=== PATIENT | female | born 1990 | race Caucasian/White ===

== ENCOUNTER 2018-01-22 00:12 | Emergency (ER) | payer OTHER ==
--- NOTE | 2018-01-22 00:14 | PDOC ---
History of Present Illness - General Chief Complaint: Palpitations Stated Complaint: PALPITATIONS Time Seen by Provider: 01/22/18 00:14 - History of Present Illness Initial Comments: This 27-year-old woman without significant past medical history presents with episode of palpitations and she was lying in bed, just prior to going to sleep. Patient states that she had just returned home from work; she states that it was quite cold outside and she exerted herself walking through the cold wind. After returning home, she ate constituted processed dried soup. After she laid down, she had sensation of extra beats. No sensation of rapid heartbeat. No shortness of breath. She also states that she drank more coffee during the day than she normally does (at least 2 cups of coffee) No history of smoking/HTN/DM/HLD. No significant early cardiac history in her family. Past History - Past Medical History Allergies/Adverse Reactions: Allergies Allergy/AdvReac Type Severity Reaction Status Date / Time No Known Allergies Allergy Verified 01/22/18 00:13 Home Medications: Ambulatory Orders NK [No Known Home Medication] 01/22/18 Review of Systems - Review of Systems Able to Perform ROS?: Yes Comments:: 12 point review of systems is negative except for what is noted in the history of present illness *Physical Exam - Vital Signs Last Vital Signs Temp Pulse Resp BP Pulse Ox 97.4 F L 62 16 149/102 H 100 01/22/18 00:15 01/22/18 00:15 01/22/18 00:15 01/22/18 00:45 01/22/18 00:15 - Physical Exam Comments: GENERAL: Adult female, alert and oriented 3, in no acute distress HEAD: Normal with no signs of trauma. EYES: PERRLA, EOMI, sclera anicteric, conjunctiva clear. ENT: Ears normal, nares patent, oropharynx clear without exudates. Moist mucous membranes. NECK: Normal range of motion, supple without lymphadenopathy, JVD, or masses. LUNGS: Breath sounds equal, clear to auscultation bilaterally. No wheezes, and no crackles. HEART:Regular rate and rhythm, normal S1 and S2 without murmur, rub or gallop. ABDOMEN:.normal bowel sounds No guarding,tenderness or rebound.No masses No distention. EXTREMITIES: Normal range of motion, no edema. No clubbing or cyanosis. No erythema, or tenderness. NEUROLOGICAL: Cranial nerves II through XII grossly intact. Normal speech. No focal neurological deficits. MUSCULOSKELETAL: Back non-tender to palpation, no CVA tenderness SKIN: Warm, Dry, normal turgor, no rashes or lesions noted. 12-lead electrocardiogram is performed and interpreted by me: Normal sinus rhythm at 80 beats per minute; there is right sided axis deviation. No interval or wave form abnormalities seen. No evidence of acute cardiac ischemia ; no cardiac arrhythmia seen Moderate Sedation - Procedure Monitoring Vital Signs: Procedure Monitoring Vital Signs Temperature 97.4 F L 01/22/18 00:15 Pulse Rate 62 01/22/18 00:15 Respiratory Rate 16 01/22/18 00:15 Blood Pressure 149/102 H 01/22/18 00:45 O2 Sat by Pulse Oximetry (%) 100 01/22/18 00:15 Medical Decision Making - Medical Decision Making This 27-year-old woman presents with history of palpitations episode prior to presentation. Prior to arriving in the emergency room, sensation of extra beats is fully resolved. She has no other new symptoms. Of note, the patient had significant hypertension on presentation with diastolic 110 mmHg. Patient rested for a while and blood pressure was repeated. BP now 149/102. Patient has been strongly urged to follow-up with her PMD within the next 48 hours. Meanwhile, she should avoid excessive salt and caffeine intake. *DC/Admit/Observation/Transfer Diagnosis at time of Disposition: History of palpitations - Discharge Dispostion Disposition: HOME Condition at time of disposition: Stable - Referrals - Patient Instructions Printed Discharge Instructions: Low-Sodium Diet, DI for Palpitations Additional Instructions: Limit caffeine and salt intake Follow up with your doctor within the next 2-3 days Return to ER if you have persistent palpitations, shortness of breath or chest pain/pressure - Post Discharge Activity
[2018-01-22 00:19] VITALS: PULSE 62; TEMP 97.4; BMI 28.3
[2018-01-22 00:46] VITALS: BP 149/102
--- NOTE | 2018-01-22 10:14 | EKG ---
Test Reason : Blood Pressure : / mmHG Vent. Rate : 062 BPM Atrial Rate : 062 BPM P-R Int : 120 ms QRS Dur : 084 ms QT Int : 388 ms P-R-T Axes : -12 102 054 degrees QTc Int : 393 ms NORMAL SINUS RHYTHM RIGHTWARD AXIS BORDERLINE ECG NO PREVIOUS ECGS AVAILABLE Confirmed by MARVIN NINO, LIZETH ([id number]) on 01/22/2018 10:14:09 AM Referred By: MD GARAY Confirmed By:LIZETH WONG MD
== END 2018-01-22 01:00 | disposition home or self-care (01) ==
LOC: FER 00:12
DX: R00.2 Palpitations (principal)
CPT/HCPCS: 93005; 99281-25

== ENCOUNTER 2020-08-15 09:49 | Emergency (ER) | payer OTHER ==
[2020-08-15 09:58] VITALS: BP 147/92; PULSE 66; TEMP 98.9; BMI 32.7
[2020-08-15 10:50] LABS: HCG,QUALITATIVE URINE Negative
[2020-08-15 11:02] LABS: BASO % 2.3 % (0-2.0); EOS % 2.1 % (0-4.5); HEMATOCRIT 40.6 % (32.4-45.2); LYMPH % 18.9 % (8-40); MCH 28.4 pg (25.7-33.7); MEAN CELL VOLUME 88.6 fl (80-96); MEAN PLT VOLUME 10.1 fl (7.5-11.1); NEUT % 66.7 % (42.8-82.8); PLATELET COUNT 329 10^3/uL (134-434); RBC 4.59 M/mm3 (3.60-5.2); RDW 13.5 % (11.6-15.6); WHITE BLOOD COUNT 7.3 K/mm3 (4.0-10.8)
[2020-08-15 11:08] LABS: ALBUMIN 3.8 g/dl (3.4-5.0); BILIRUBIN,TOTAL 0.6 mg/dl (0.2-1); CALCIUM 8.8 mg/dl (8.5-10); CREATININE 0.7 mg/dl (0.55-1.3); TOT PROT 7.4 g/dl (6.4-8.2)
[2020-08-15 11:15] LABS: EPITHELIAL CELLS FEW /hpf
[2020-08-15 11:17] LABS: INR 1.13 (0.82-1.09); PROTHROMBIN TIME (PATIENT) 12.6 SEC (10.2-13.0)
== END 2020-08-15 13:04 | disposition home or self-care (01) ==
LOC: FER 09:49
DX: R10.11 Right upper quadrant pain (principal)
CPT/HCPCS: 36415; 76705-TC; 80053; 81003; 81015; 83690; 83735; 84703; 85025; 85610; 86850; 86900; 86901; 87077; 87086; 99284-25

== ENCOUNTER 2021-07-03 17:06 | Emergency (ER) | payer OTHER ==
[2021-07-03 17:23] VITALS: BP 145/95; PULSE 73; TEMP 99; BMI 32.1
[2021-07-03] MEDS ORDERED: ACETAMINOPHEN 500 MG TABLET (FP) PO ONE (18:01)
[2021-07-03] MEDS ORDERED: LIDOCAINE 5% TOPICAL PATCH TP ONE (18:01)
[2021-07-03] MEDS ORDERED: ACETAMINOPHEN 500 MG TABLET (FP) ONE (18:30)
[2021-07-03] MEDS ORDERED: LIDOCAINE 5% TOPICAL PATCH ONE (18:30)
[2021-07-03] MEDS ORDERED: LIDOCAINE PATCH REMOVAL MC SCH (22:00)
== END 2021-07-03 18:43 | disposition home or self-care (01) ==
LOC: FER 17:06
DX: S13.4XXA Sprain of ligaments of cervical spine, initial encounter (principal); R20.2 Paresthesia of skin; V43.52XA Car driver injured in collision with other type car in traffic accident, initial encounter
CPT/HCPCS: 99283-25